=== PATIENT | female | born 1975 | race Hispanic/Latino ===

== ENCOUNTER 2018-09-09 16:41 | Outpatient (CLI) | payer BC ==
--- NOTE | 2018-09-10 07:53 | MRI ---
MRI OF THE RIGHT KNEE WITHOUT CONTRAST: INDICATION: Right knee pain. COMPARISON: Right knee radiograph dated 07/26/2018. FINDINGS: There is a partial thickness radial tear involving the posterior horn of the medial meniscus with par tial medial extrusion. There is intrinsic meniscal degeneration within the medial meniscus. There i s some central free edge fibrillation involving the body of the medial meniscus. The lateral meniscu s is partially discoid but without evidence of discrete tear. There are marginal osteophytes affecting the major compartments of the right knee. There is moderate diffuse chondral thinning involving the medial femoral tibial compartment as well as the lateral asp ect of the patellofemoral compartment. No full-thickness defect is grossly evident. The ACL, PCL, MCL, and LCLC are intact. The extensor mechanism is intact. IT band and popliteus saud ear within normal limits. There is a moderate-size semimembranous-medial gastrocnemius popliteal cys t. IMPRESSION: 1. Mild osteoarthrosis of the right knee. 2. Medial meniscal tear. POS: BH
== END 2018-09-09 16:42 | disposition home or self-care (01) ==
LOC: MRI 16:41
PROVIDERS: ATTEND Orthopaedic Surgery
DX: M17.11 Unilateral primary osteoarthritis, right knee (principal); S83.241A Other tear of medial meniscus, current injury, right knee, initial encounter